=== PATIENT | female | born 1935 | race Caucasian/White ===

== ENCOUNTER → 2022-04-09 | Outpatient (RCR) | payer MEDICARE, OTHER ==
[~2022-04-09] MED LIST: ASPIRIN81 MG PO; CALCIUM 1,2001 EACH PO; DAILY MULTIPLE1 EACH PO; FISH OIL 1,0001 EAC2 PO
== END ==
LOC: PT 03-20 13:47
PROVIDERS: ATTEND Specialist
DX: M17.12 Unilateral primary osteoarthritis, left knee (principal); M25.562 Pain in left knee; R26.2 Difficulty in walking, not elsewhere classified; M62.81 Muscle weakness (generalized)

== ENCOUNTER 2023-06-04 11:56 | Inpatient (IN) | payer MEDICARE, OTHER ==
[~2023-06-04] VITALS: Ht 165.1 cm; Wt 78.0 kg
[2023-06-04] MEDS ORDERED: FENTANYL CITRATE/PF 100MCG/2 ML INJ ONE (12:52)
[2023-06-04] MEDS ORDERED: Morphine 10mg syringe 10 MG/ML INJ ONE (12:52)
[2023-06-04] MEDS ORDERED: DEXAMETHASONE SOD PHOS INJ 4 MG/ML SDV ONE (13:37)
[2023-06-04] MEDS ORDERED: SEVOFLURANE INHAL SOLN 250 ML PEN BTL ONE (13:37)
[2023-06-04] MEDS ORDERED: ONDANSETRON HCL INJ 2MG/ML 2ML 2 MG/ML VIAL ONE ×2 (13:37→15:24)
[2023-06-04] MEDS ORDERED: ROCURONIUM BROMIDE 10 MG/ML 5ML VIAL IV ONE (13:37)
[2023-06-04] MEDS ORDERED: PROPOFOL IV EMULSION 10 MG/ML 20 ML VIAL ONE (13:37)
[2023-06-04] MEDS ORDERED: SUCCINYLCHOLINE CHLORIDE 20 MG/ML 10ML VIAL ONE (13:37)
[2023-06-04] MEDS ORDERED: KETOROLAC TROMETHAMINE 30 MG/ML VIAL ONE (13:37)
[2023-06-04] MEDS ORDERED: SUGAMMADEX SODIUM 200 MG/2 ML VIAL IV ONE ×2 (13:37→19:03)
[2023-06-04] MEDS ORDERED: LIDOCAINE HCL 2% LOCAL INJ 5 ML SDV VIAL INJ ONE (13:37)
[2023-06-04] MEDS ORDERED: METOCLOPRAMIDE HCL 10 MG/2ML VIAL ONE ×2 (13:37)
[2023-06-04 13:38] LABS: BASOPHILS % 0.2 % (0.0-1.0); HEMATOCRIT 41.7 % (34.2-44.1); HEMOGLOBIN 14.6 g/dL (12.0-16.0); LYMPHOCYTES % 26.6 % (18.0-39.1); MEAN CORPUSCULAR HEMOGLOBIN 30.7 pg (28-32); MEAN CORPUSCULAR VOLUME 87.6 fL (81-99); MONOCYTES # (AUTO) 0.7 (0.2-0.8); MONOCYTES % 3.5 % (4.4-11.3); NEUTROPHILS % 69.3 % (38.7-80.0); PLATELET COUNT 225 x10e3/uL (140-360); RED BLOOD COUNT 4.76 x10e6/uL (3.6-5.1); RED CELL DISTRIBUTION WIDTH 12.9 % (11.7-14.4); WHITE BLOOD COUNT 18.68 x10e3/uL (4.8-10.8)
[2023-06-04 13:52] LABS: ALBUMIN 4.2 g/dL (3.5-5.0); ALBUMIN/GLOBULIN RATIO 1.4 (0.8-2.0); ANION GAP 16.6 mmol/L (8-16); BILIRUBIN,TOTAL 0.6 mg/dL (0.2-1.2); CALCIUM 10.5 mg/dL (8.4-10.2); CREATININE, SERUM 0.89 mg/dL (0.57-1.11); POTASSIUM 3.6 mmol/L (3.5-5.1); TOTAL PROTEIN 7.1 g/dL (6.5-8.1)
[2023-06-04 13:53] LABS: CLARITY,URINE CLEAR (CLEAR); COLOR,URINE YELLOW (YELLOW)
[2023-06-04 13:54] LABS: BILIRUBIN,URINE NEGATIVE (NEGATIVE); GLUCOSE, URINE NEGATIVE (NEGATIVE); KETONES,URINE NEGATIVE (NEGATIVE); LEUKOCYTE ESTERASE ,URINE NEGATIVE (NEGATIVE); NITRITE,URINE NEGATIVE (NEGATIVE); PH,URINE 5.5 (5 - 7); PROTEIN,URINE DIPSTICK NEGATIVE (NEGATIVE); URINE UROBILINOGEN 0.2 mg/dL (0.2 - 1)
[2023-06-04] MEDS ORDERED: IOPAMIDOL 370 MG/ML 100 ML INFUS..BTL INJ ONE (14:04)
[2023-06-04 14:07] LABS: BACTERIA,URINE FEW /HPF; EPITHELIAL CELLS,URINE FEW /LPF; MUCUS,URINE MODERATE (RARE); RBC,URINE 0-5 /HPF (0-5); WBC,URINE (MAN) 0-5 /HPF (0-5)
[2023-06-04] MEDS ORDERED: Morphine 4mg INJECTION 4 MG/ML INJ ONE (15:23)
[2023-06-04] MEDS ORDERED: PIPERACILLIN/TAZOBACTAM 3.375 GM VIAL ONE (15:24)
[2023-06-04] MEDS ORDERED: SODIUM CHLORIDE 0.9% 1000ML 1,000 ML ONE (15:24)
[2023-06-04] MEDS: SODIUM CHLORIDE 0.9% 1000ML 1,000 ML IV ONE (15:25)
[2023-06-04] MEDS: Morphine 4mg INJECTION 4 MG/ML INJ IV ONE (15:28)
[2023-06-04] MEDS: ONDANSETRON HCL INJ 2MG/ML 2ML 2 MG/ML VIAL IV STA (15:28)
[2023-06-04] MEDS ORDERED: ONDANSETRON HCL INJ 2MG/ML 2ML 2 MG/ML VIAL IV PRN (15:30)
[2023-06-04] MEDS ORDERED: Morphine 4mg INJECTION 4 MG/ML INJ IV PRN (15:30)
[2023-06-04] MEDS: SODIUM CHLORIDE 0.9% 1000ML 1,000 ML IV SCH (15:30)
[2023-06-04 16:09] LABS: INR 0.86; PROTHROMBIN TIME 12.4 seconds (11.9-14.5)
[2023-06-04 16:10] LABS: PARTIAL THROMBOPLASTIN TIME 24.7 seconds (23.8-35.5)
[2023-06-04 17:41] VITALS: BP 163/75; PULSE 84; RESP 15; O2SAT 100
[2023-06-04 17:47] VITALS: BP 163/75; PULSE 84; RESP 15; O2SAT 100
[2023-06-04] MEDS ORDERED: BUPIVACAINE 0.5%/EPI 30 ML SDV INJ ONE (18:05)
[2023-06-04] MEDS: MEPERIDINE HCL INJ 25 MG/ML VIAL IV ONE (19:20)
[2023-06-04] MEDS ORDERED: MEPERIDINE HCL INJ 25 MG/ML VIAL ONE (19:24)
[2023-06-04 20:16] VITALS: BP 153/59; PULSE 96; RESP 18; TEMP 98.5; O2SAT 94
[2023-06-04] MEDS ORDERED: LISINOPRIL10 MG PO (20:17)
[2023-06-04 21:20] VITALS: BP 153/59; PULSE 96; RESP 18; TEMP 98.5; O2SAT 94
[2023-06-04 23:07] VITALS: BP 136/70; PULSE 83; RESP 18; TEMP 98.9; O2SAT 94
[2023-06-04] MEDS ORDERED: HYDROCODONE/APAP 5MG-325MG TAB PO PRN (23:15)
[2023-06-04] MEDS ORDERED: ACETAMINOPHEN 325 MG TAB PO PRN (23:15)
[2023-06-05] VITALS (7 sets, daily range): BP systolic 130–155; BP diastolic 56–82; PULSE 55–77; RESP 16–18; TEMP 97.5–99; O2SAT 97–100
[2023-06-05 05:59] LABS: HEMATOCRIT 34.8 % (34.2-44.1); HEMOGLOBIN 11.5 g/dL (12.0-16.0); MEAN CORPUSCULAR VOLUME 90.9 fL (81-99); PLATELET COUNT 174 x10e3/uL (140-360); RED BLOOD COUNT 3.83 x10e6/uL (3.6-5.1); RED CELL DISTRIBUTION WIDTH 13.3 % (11.7-14.4); WHITE BLOOD COUNT 14.65 x10e3/uL (4.8-10.8)
[2023-06-05 06:47] LABS: ALBUMIN 3.1 g/dL (3.5-5.0); ALBUMIN/GLOBULIN RATIO 1.4 (0.8-2.0); ANION GAP 11.7 mmol/L (8-16); BILIRUBIN,TOTAL 0.7 mg/dL (0.2-1.2); CALCIUM 8.5 mg/dL (8.4-10.2); CREATININE, SERUM 0.84 mg/dL (0.57-1.11); POTASSIUM 3.7 mmol/L (3.5-5.1); TOTAL PROTEIN 5.3 g/dL (6.5-8.1)
[2023-06-05] MEDS ORDERED: MEPERIDINE HCL INJ 25 MG/ML VIAL ONE (08:00)
[2023-06-05 09:32] LABS: LYMPHOCYTES % (MANUAL) 5 % (19-48); MONOCYTES % (MANUAL) 5 % (3.4-9.0); NEUTROPHILS % (MANUAL) 90 % (40-74)
[2023-06-05 09:33] LABS: PLATELET ESTIMATE ADEQUATE; PLATELET MORPHOLOGY COMMENT NORMAL; RBC MORPHOLOGY COMMENT NORMAL
[2023-06-05] MEDS ORDERED: PIPERACILLIN/TAZOBACTAM 3.375 GM VIAL ONE ×2 (14:56→20:06)
[2023-06-06 03:20] VITALS: BP 171/71; PULSE 78; RESP 18; TEMP 98.6; O2SAT 97
[2023-06-06 05:58] LABS: BASOPHILS % 0.2 % (0.0-1.0); EOSINOPHILS # (AUTO) 0.1 (0.0-0.4); HEMATOCRIT 34.3 % (34.2-44.1); HEMOGLOBIN 11.7 g/dL (12.0-16.0); MEAN CORPUSCULAR HEMOGLOBIN 31.4 pg (28-32); MEAN CORPUSCULAR HGB CONC 34.1 g/dL (31-35); MONOCYTES # (AUTO) 0.9 (0.2-0.8); MONOCYTES % 7.9 % (4.4-11.3); NEUTROPHILS # (AUTO) 6.4 (2.1-6.9); NEUTROPHILS % 55.3 % (38.7-80.0); PLATELET COUNT 148 x10e3/uL (140-360); RED BLOOD COUNT 3.73 x10e6/uL (3.6-5.1); RED CELL DISTRIBUTION WIDTH 13.2 % (11.7-14.4); WHITE BLOOD COUNT 11.46 x10e3/uL (4.8-10.8)
[2023-06-06 06:26] LABS: ALBUMIN/GLOBULIN RATIO 1.2 (0.8-2.0); ANION GAP 12.4 mmol/L (8-16); BILIRUBIN,TOTAL 0.7 mg/dL (0.2-1.2); CALCIUM 8.4 mg/dL (8.4-10.2); CREATININE, SERUM 0.87 mg/dL (0.57-1.11); TOTAL PROTEIN 5.5 g/dL (6.5-8.1)
[2023-06-06 06:28] LABS: POTASSIUM 3.4 mmol/L (3.5-5.1)
[2023-06-06 07:28] VITALS: BP 155/56; PULSE 74; RESP 18; TEMP 98.5; O2SAT 98
[2023-06-06] MEDS ORDERED: ONDANSETRON ODT8 MG PO (07:36)
[2023-06-06 08:02] VITALS: BP 156/56; PULSE 74; RESP 18; TEMP 98.5; O2SAT 98
== END 2023-06-06 09:26 | disposition home or self-care (01) | DRG 399 ==
LOC: ER 12:25 → ERHOLD 15:26 → MED/SURG2 16:55 → OBSVTOIN 06-05 09:58
PROVIDERS: ADMIT Internal Medicine; ATTEND Internal Medicine
PROC: 0DTJ4ZZ Resection of Appendix, Percutaneous Endoscopic Approach (ICD-10-PCS; principal; 2023-06-04 18:07)
DX: K35.32 Acute appendicitis with perforation, localized peritonitis, and gangrene, without abscess (principal); I10 Essential (primary) hypertension; Z11.52 Encounter for screening for COVID-19; Z90.49 Acquired absence of other specified parts of digestive tract; Z87.891 Personal history of nicotine dependence; E66.3 Overweight; Z68.28 Body mass index [BMI] 28.0-28.9, adult
CPT/HCPCS: 36415; 74177; 80053; 81001; 83690; 85007; 85025; 85027; 85610; 85730; 88304; 99284; G0378; J0330; J1100; J1885; J2001; J2175; J2270; J2405; J2543; J2765; J7030; Q9967; U0002